=== PATIENT | male | born 1940 | race Caucasian/White ===

== ENCOUNTER 2017-01-29 14:55 | Observation (INO) | payer MEDICARE ==
[~2017-01-29] VITALS: Ht 170.2 cm; Wt 72.6 kg
[2017-01-29] MEDS ORDERED: SYMBICORT 16010.2 GM INH (15:10)
[2017-01-29] MEDS ORDERED: PLAVIX75 MG PO (15:10)
[2017-01-29] MEDS ORDERED: SPIRIVA18 MCG INH (15:12)
--- NOTE | 2017-01-29 17:58 | NUR ---
PT ARRIVED ON FLOOR FROM ER VIA STRETCHER. PT WAS CLAMY AND COOL, SLEEPY BUT WOKE TO VOICE AND TOUCH. PT PLACED ON 4L O2 VIA OXYMASK BY RESP. THERAPY. PT MAINTAINING O2 SATS >92%. DR. RAMIREZ ROUNDED ON PT, WILL TAKE TO SURGERY AT 1900 THIS DATE. PT BECOMING MORE AWAKE. NO COMPLAINTS OF PAIN, SOB, NAUSEA. PT REPORTS FEELING OF SOMETHING IN CHEST.
--- NOTE | 2017-01-29 17:59 | EKG ---
[facility] [address] [facility] [place] [address] Signed Sinus rhythm with occasional premature ventricular complexes Right bundle branch block Left anterior fascicular block Bifascicular block Cannot rule out Inferior infarct (masked by fascicular block?) , age undetermined Abnormal ECG No previous ECGs available Confirmed by SYDNEY CLIFTON MD ([id number]) on 01/29/2017 5:59:40 PM Electronically Signed By: SYDNEY CLIFTON MD 01/29/17 1759 PATIENT NAME: MICKEY SHIRLEY Electrocardiogram DATE OF : 36 PHYSICIAN: SYDNEY CLIFTON MD REPORT #: [id number] REPORT IS CONFIDENTIAL AND NOT TO BE RELEASED WITHOUT AUTHORIZATION
[2017-01-29] MEDS ORDERED: BALSALAZIDE DI750 MG PO (18:19)
[2017-01-29] MEDS ORDERED: LISINOPRIL40 MG PO (18:19)
[2017-01-29] MEDS ORDERED: AMLODIPINE BESY10 MG PO (18:19)
[2017-01-29] MEDS ORDERED: SIMVASTATIN10 MG PO (18:20)
[2017-01-29] MEDS ORDERED: MONTELUKAST SOD10 MG PO (18:21)
--- NOTE | 2017-01-29 18:22 | NUR ---
PRE-PROCEDURE CHECKLIST COMPLETE. DENTURES AND JEWLERY ARE IN LABLED CUPS AT SINKSIDE. PT AWARE. ALL QUESTIONS ANSWERED. NO PRE-OP ANTIBIOTICS ORDERED. WIPEDOWN COMPLETE, NO COMPLAINTS OF BURNING OR ITCHING AFTER WIPEDOWN.
--- NOTE | 2017-01-29 18:50 | NUR ---
ATTEMPTED CONTACT WITH PT TO ADVISE HE IS READY FOR SURGERY. NO ANSWER ON PHONE NUMBER GIVEN. PT LEFT THE FLOOR FOR SURGERY AT 1855.
--- NOTE | 2017-01-29 19:51 | NUR ---
01/29/171950 Angela Roman 194 PATIENT ARRIVES TO PACU UNRESPONSIVE TO PAIN OR VERBAL STIMULI. ORAL AIRWAY PLACED BY SAVANNA BARRIOS ON ARRIVAL TO PACU. RN HOLDING AIRWAY. 1949 PATIENT OPENS EYES TO LOUD VERBAL STIMULI, REACHING FOR ORAL AIRWAY, REMOVED BY RN. PATIENT BACK TO SLEEP.
--- NOTE | 2017-01-29 20:35 | NUR ---
PT RETURNED FROM OR, REPORT RECIEVED FROM JAJA YOU. VITAL SIGNS AND ASSESSMENT COMPLETED. PT CURRENTLY DROWSY, BUT WAKES TO VOICE AND TOUCH. DENIES PAIN. ON 02 PER MASK AT 4 L, CONTINOUS PULSE OX IN PLACE. RESPIRATIONS EVEN AND UNLABORED. WATER PLACED AT BEDSIDE. CALL LIGHT WITHIN REACH.
--- NOTE | 2017-01-29 21:27 | NUR ---
SPOKE WITH DR. RAMIREZ TO CLARIFY CARAFATE ORDERS, DISCUSS PAIN WITH SWALLOWING AND MEDICATION ADMINISTRATION. PER DR. RAMIREZ GIVE 1 DOSE OF CARAFATE 1,000 MG, GARGLE AND SWALLOW, HOLD PO MEDICATION UNTIL AM, GIVE PROTONIX 40 MG IV TONIGHT. PHYSICISN INFORMED THAT PT STATES HIS THROAT IS "SORE" WHEN GIVEN WATER. NO FURTHER ORDERS FOR PAIN AT THIS TIME. ORDERS UPATED.
--- NOTE | 2017-01-29 21:40 | NUR ---
IN TO SEE PT, VITALS TAKEN. PT DENIES NAUSEA. C/O OF "SORE" THROAT. ADVISED PT THAT MEDICATION WILL BE GIVEN TO HELP WITH PAIN. NO FURTHER NEEDS AT THIS TIME. CALL LIGHT WITHIN REACH.
--- NOTE | 2017-01-29 22:49 | NUR ---
IN TO CHECK ON PT, PT SLEEPING EASILY AWAKES TO VOICE OR TOUCH. VS TAKEN. RESPIRATIONS EVEN, NO APPARENT DISTRESS. DENIES NAUSEA. C/O OF SORE THROAT. WATER GIVEN. SCD'S IN PLACE. IVF INFUSING. WILL CONTINUE TO MONITOR.
--- NOTE | 2017-01-29 23:48 | NUR ---
IN TO CHECK ON PT, PT SLEEPING. AWAKES EASILY TO VOICE OR TOUCH. VITAL TAKEN. PT DENIES NAUSEA. PT C/O SORE THROAT. SCD'S IN PLACE. IV INFUSING. CALL LIGHT WITHIN REACH.
--- NOTE | 2017-01-30 00:49 | NUR ---
IN TO CHECK ON PT, PT SLEEPING. RESPIRATION EVEN AND UNLABORED. OXYGEN IN PLACE AT 4L. IVF INFUSING. CALL LIGHT WITHIN REACH.
--- NOTE | 2017-01-30 01:48 | NUR ---
PT UP TO BATHROOM WITH 2 PERSON STANDBY ASSIST. AMBULATED WELL, SLIGHTLY UNSTEADY ON FEET. VITALS TAKEN. PT C/O SORE THROAT. ASSISTED BACK TO BED. PT REORIENTED REGARDING SURGICAL PROCEDURE AND OUTCOME. FRESH WATER GIVEN, PT WATCHING TV. CALL LIGHT WITHIN REACH.
--- NOTE | 2017-01-30 02:53 | NUR ---
IN TO CHECK ON PT, PT AWAKE WATCHING TV. WATER REFILLED. NO FURTHER NEEDS AT THIS TIME. CALL LIGHT WITHIN REACH.
--- NOTE | 2017-01-30 04:14 | NUR ---
IN TO ROOM TO CHANGE IVF, PT SLEEPING. O2 IN PLACE. CALL LIGHT WITHIN REACH.
--- NOTE | 2017-01-30 05:33 | NUR ---
PT RETURNED FOR SURGERY @ 2039. ESOPHAGEAL IMPACTION RESOLVED. POST-OP VITALS AND ASSESSMENT STABLE. ORAL MEDICATION HELD UNTIL AM DUE TO THROAT PAIN. O2 VIA MASK @ 4L. FULL LIQUID DIET, PT HAS ONLY HAD WATER THROUGHOUT SHIFT. UP TO BATHROOM WITH WITH 1 PERSON ASSIST. POSSIBLE DISCHARGE TODAY.
--- NOTE | 2017-01-30 06:25 | NUR ---
PT UP TO BATHROOM TO VOID. 1 PERSON STANDBY ASSIST. PT AMBULATED BACK TO BED. VITALS DONE. COFFEE GIVEN. NO FURTHER NEEDS AT THIS TIME. CALL LIGHT WITHIN REACH.
--- NOTE | 2017-01-30 07:15 | NUR ---
REPORT RECEIVED FROM PATTERN MECHANIC RN USING 5 P'S. IV FLUIDS INFUSING WITHOUT DIFFICULTY. PT AWAKE AND ALERT. DENIES PAIN OR NEEDS. CALL LIGHT IN REACH.
[2017-01-30] MEDS ORDERED: PANTOPRAZOLE SO40 MG PO (08:41)
--- NOTE | 2017-01-30 13:24 | EKG ---
[facility] [address] [facility] [place] [address] Signed Sinus tachycardia Right bundle branch block Left anterior fascicular block Bifascicular block Abnormal ECG When compared with ECG of 29-JAN-2017 15:24, (Unconfirmed) premature ventricular complexes are no longer present Confirmed by SYDNEY CLIFTON MD ([id number]) on 01/30/2017 1:24:44 PM Electronically Signed By: SYDNEY CLIFTON MD 01/30/17 1324 PATIENT NAME: MICKEY SHIRLEY Electrocardiogram DATE OF : 36 PHYSICIAN: SYDNEY CLIFTON MD REPORT #: [id number] REPORT IS CONFIDENTIAL AND NOT TO BE RELEASED WITHOUT AUTHORIZATION
--- NOTE | 2017-02-08 10:25 | OR ---
[facility] [address] [place], [place] [address] Signed DATE OF PROCEDURE: 01/29/17 PREOPERATIVE DIAGNOSES Esophageal food impaction. Prior food impaction, last 2012 ([place], [place]). POSTOPERATIVE DIAGNOSIS: Meat food impaction (extensive). PROCEDURE Endoscopic removal of food impaction (prolonged, complicated, and difficult). SURGEON: Melayn Ramirez MD. ANESTHESIA: Intravenous sedation, Maria Guadalupe Pugh CRNA. INDICATION This 76-year-old white man was traveling to the [facility] and having dinner at the local casino with his . His first bite of roast beef resulted in obstructive symptoms of his esophagus. He was evaluated in the emergency room by Dr. Dave Crump and found clinically to have findings consistent with food impaction. The patient has had 2 similar episodes in the past, the last about 4 years ago requiring endoscopic removal. Strangely, he has not been treated with a PPI medication for reflux he says. He is treated with Plavix on a daily basis for prior history of TIA. His primary provider is Dr. Baldwin in [facility]. Glucagon was ineffective in allowing for passage of the food impaction, and on that basis, endoscopic removal has been recommended. The risks of bleeding, infection, perforation, and so forth were reviewed in detail with the patient and his . They understand and wished to proceed. FINDINGS Dense impaction of meat in the distal esophagus was noted. A combination of techniques was required to ultimately clear the esophagus. Most of the impacted food was withdrawn, only minimal amount pushed forward into the stomach. Examination of the esophagus showed marked distal esophagitis. The midesophagus did not have typical appearance of eosinophilic esophagitis. The stomach itself was normal as was the pylorus and the duodenum. Retroflexed view did confirm a poor flap valve at the GE junction. It is my assumption that his impaction was related to a low-grade stricture. There is no clear evidence of malignancy. No evidence of Galaviz epithelium. No varices. By conclusion, complete clearance of the esophagus is noted and biopsies taken of the distal esophagus at the strictured area in the mid esophagus to rule out eosinophilic esophagitis. Electronically Signed By: MELANY RAMIREZ MD 02/08/17 1025 PATIENT NAME: MICKEY SHIRLEY OPERATIVE REPORT DATE OF : 36 PHYSICIAN: MELANY RAMIREZ MD REPORT #: [id number] REPORT IS CONFIDENTIAL AND NOT TO BE RELEASED WITHOUT AUTHORIZATION [facility] [address] [place], [place] [address] Signed PROCEDURE The patient was brought to the endoscopy suite and placed in lateral decubitus position. Given intravenous sedation with Propofol infusional technique by Maria Guadalupe Pugh CRNA. Full cardiopulmonary monitoring was maintained. A 28-Icelandic clear chest tube was cut to appropriate size and configuration passed over the tip of the endoscope to allow for better suction on the port to extract food impaction if appropriate. It was a soft type chest tube. A bite block was placed and a scope was passed in the hypopharynx. The vocal cords appeared normal as did the hypopharyngeal tissues. The scope was advanced into the esophagus, and in the distal portion, shards of obvious meat impaction were noted. Suction with the small suction cup over the tip of the tube was effective in explanting small amounts of meat, but some of the meat was very dense and a Mark Net was then used to try to incorporate it. It was not so dense that the net could well grasp it and only small portions were taken with the net. A 3-prong grasper was then employed which variably allowed for withdrawal of chunks of meat into the over tube of the tip of the scope with withdrawal. Multiple passes of the upper scope were used of course. Ultimately, with long and persistent effort, the esophagus was largely cleared. Few shards of meat in the distal portion were then able to be passed into the stomach. Antegrade passage of the meat impaction would have been quite impossible and considered highly dangerous and therefore virtually all the impaction was withdrawn rather than advanced into the stomach. Once in the stomach, irrigation was undertak n. The retroflexed view showed the flap valve to be poor consistent with small hiatal hernia. Rugal folds were normal. The antrum was normal. Scope was passed through into the duodenum which was normal. Scope was then withdrawn carefully and irrigation of the esophagus undertaken. The over tube cap was removed and the scope reintroduced for a final time showing no evidence of retained material in the esophagus. Close inspection of the distal esophagus showed marked inflammation, some oozing of blood probably in part related to Plavix use and irregular and eccentric stricture like formation. There was no sign of Galaviz epithelium or neoplasm proper. Careful biopsies were obtained of the stricture. The scope was withdrawn to the mid esophagus and biopsies w ere obtained though the typical feline esophagus was not noted and therefore, the possibility of the eosinophilic esophagitis was considered diminished though not impossible. Withdrawal of the scope showed no other abnormality. The hypopharyngeal tissues were normal including the vocal cords. He was ultimately taken to recovery room in good condition having suffered no complications. The operation was prolonged, complicated, and difficult on the basis of density of the impaction lasting 4 times longer than usual. Electronically Signed By: MELANY RAMIREZ MD 02/08/17 1025 PATIENT NAME: MICKEY SHIRLEY OPERATIVE REPORT DATE OF : 36 PHYSICIAN: MELANY RAMIREZ MD REPORT #: [id number] REPORT IS CONFIDENTIAL AND NOT TO BE RELEASED WITHOUT AUTHORIZATION [address] [place], [place] [address] Signed MD PRESTON Doss/Satya /[id number] cc: MD Dave Esparza DO Electronically Signed By: MELANY RAMIREZ MD 02/08/17 1025 PATIENT NAME: MICKEY SHIRLEY OPERATIVE REPORT DATE OF : 36 PHYSICIAN: MELANY RAMIREZ MD REPORT #: [id number] REPORT IS CONFIDENTIAL AND NOT TO BE RELEASED WITHOUT AUTHORIZATION
--- NOTE | 2017-02-08 10:25 | HP ---
[facility] [address] [place], [place] [address] Signed REASON FOR ADMISSION Food impaction of the esophagus (recurrent). HISTORY OF PRESENT ILLNESS This 76-year-old white man lives in the [facility]. He was accompanied by his , taking a 2-day travel trip to the [facility]. He went to the [employer] to have some roast beef. With the first bite of his meal, he poorly chewed segment of roast beef, was impacted and clinically was consistent with the distal esophagus. Fluids and so forth would not force it through. His last similar such episode was 4 years ago in the [facility]. He has undergone disimpaction at least twice before. PAST MEDICAL HISTORY Significant for history of TIA for which he takes Plavix on a routine basis. He denies any prior cardiac history, specifically coronary artery stenting or anything of that sort. He does have COPD and is noted to use a CPAP device at night. ALLERGIES He has allergies to statin medications. MEDICATIONS His medications at home include Plavix, Symbicort, and Spiriva. SOCIAL HISTORY He is accompanied by his . They live in the [facility] as previously described. He does not drink alcohol too routinely and does not smoke currently. PHYSICAL EXAMINATION GENERAL: A thin white man with a face mask oxygen in place. NECK: Trachea is midline. He has no jugular venous distention. HEENT: He is not currently hypersalivating. Glucagon was administered in the emergency room, which did not allow for clinical passage of his perceived food impaction, but did result in some regurgitation of some amount of material. CHEST: Shows normal respiratory excursion without tachypnea. ABDOMEN: Somewhat protuberant, but soft and nontender. There is no ascites. EXTREMITIES: Show no clubbing, cyanosis, or edema. LABORATORY STUDIES Show a white count of 6.9, hematocrit 43.1, plat elets 241,000. Chem profile is essentially normal. Creatinine elevated at 1.24. Troponin less than 0.010. Coag studies Electronically Signed By: MELANY RAMIREZ MD 02/08/17 1025 PATIENT NAME: MICKEY SHIRLEY HISTORY AND PHYSICAL DATE OF : 36 PHYSICIAN: MELANY ARMIREZ MD REPORT #: [id number] REPORT IS CONFIDENTIAL AND NOT TO BE RELEASED WITHOUT AUTHORIZATION [facility] [address] [place] [id number] Signed show a protime of 13.1 with an INR of 1.0. ASSESSMENT He has clinical findings of food impaction of the distal esophagus. This is a recurrent event for him. His last episode was 4 years ago. Strangely, he does not take any anti-reflux medications. Source of his dysphagia could be a stricture related to reflux or it certainly could be another entity including eosinophilic esophagitis or other dysmotility problem. As he has had several hours since his impaction has begun, I would recommend upper endoscopy at this point. We will have anesthesia for sedation. I am not certain he needs to be intubated particularly, but airway management given his COPD and so forth would be appropriate. The risks of bleeding, infection, and perforation were reviewed with the patient and his . They understand and wished to proceed. MD PRESTON Doss/Merlinl /[id number] cc: DO Ede Mccartney. Anthony ASMITA Baldwin MD [place], [place] Electronically Signed By: MELANY RAMIREZ MD 02/08/17 1025 PATIENT NAME: MICKEY SHIRLEY HISTORY AND PHYSICAL DATE OF : 36 PHYSICIAN: MELANY RAMIREZ MD REPORT #: [id number] REPORT IS CONFIDENTIAL AND NOT TO BE RELEASED WITHOUT AUTHORIZATION
== END 2017-01-30 09:30 | disposition home or self-care (01) ==
LOC: ED 14:55 → MS 14:58
PROVIDERS: ADMIT Surgery
PROC: 0DB38ZX Excision of Lower Esophagus, Via Natural or Artificial Opening Endoscopic, Diagnostic (ICD-10-PCS; 2017-01-29)
PROC: 0DC38ZZ Extirpation of Matter from Lower Esophagus, Via Natural or Artificial Opening Endoscopic (ICD-10-PCS; principal; 2017-01-29 07:00)
DX: T18.128A Food in esophagus causing other injury, initial encounter (principal); J44.9 Chronic obstructive pulmonary disease, unspecified; K20.9 Esophagitis, unspecified; Z88.8 Allergy status to other drugs, medicaments and biological substances; Z86.73 Personal history of transient ischemic attack (TIA), and cerebral infarction without residual deficits; Z79.02 Long term (current) use of antithrombotics/antiplatelets; Z79.51 Long term (current) use of inhaled steroids; Z79.899 Other long term (current) drug therapy
CPT/HCPCS: 00740; 80048; 84484; 85025; 85610; 93005; 93010; 94762; 96374; 96375; 99285; G0378; J1170; J1610; J2060; J2250; J2704; J3010; J7120